=== PATIENT | male | born 1975 | race Caucasian/White ===

== ENCOUNTER → 2020-07-14 09:26 | Outpatient (BNVA) | payer SELFPAY | PROVIDERS: Family Provider Family Medicine; PCP Family Medicine; Referring Provider Family Medicine; Visit Provider Orthopaedic Surgery | DX: M25.461 Effusion, right knee (principal); M17.11 Unilateral primary osteoarthritis, right knee; M25.561 Pain in right knee | CPT/HCPCS: 73560; 73565 ==

== ENCOUNTER 2020-11-27 12:00 | Emergency (ER) | payer SELFPAY ==
[2020-11-27 12:17] VITALS: BP 133/69; PULSE 84; RESP 16; TEMP 36.8; O2SAT 100; BMI 33.9
[2020-11-27 12:23] VITALS: BP 116/75; PULSE 81; RESP 18; O2SAT 97
--- NOTE | 2020-11-27 12:26 | W.ED.BACK ---
HPI - Back Pain/Injury General: Chief Complaint: Back Pain/Injury Stated Complaint: Back Pain Time Seen by Provider: 11/27/20 12:21 History of Present Illness: HPI Narrative: Patient is a 45-year-old male comes to the ED with back pain. Patient says yesterday he was working at a [employer] and having board came down the line and hit patient in the lower back. He now has lower back pain that he rates it 10 out of 10. Pain stays in his lower back and does not radiate anywhere. Denies any bladder or bowel incontinence, pelvic anesthesia or weakness to extremities. Denies any pain rating down his legs. He says any movement with his core causes pain in his back. Associated symptoms: Deny abdominal pain, chills, dysuria, fatigue, fever(s), hematuria, nausea or vomiting Review of Systems Const: Denies: fever(s), chills or fatigue Eyes: Denies: change in vision or eye discomfort ENMT: Denies: throat pain, odynophagia, nasal discharge or nasal congestion Card: Denies: chest pain, palpitations, edema, swelling of feet/ankles, dyspnea on exertion or orthopnea Resp: Denies: dyspnea, productive cough or non-productive cough GI: Denies: abdominal pain, nausea, vomiting, diarrhea, constipation or hematochezia : Denies: flank pain, difficulty urinating, dysuria or hematuria Musc: Reports: back pain; Denies: neck pain or extremity swelling Skin/Breast: Denies: rash or new lesions Neuro: Denies: headache(s), numbness in extremities or weakness in extremities PFS ED PFSH: Social History Smoking and tobacco status: never smoked Alcohol intake: never Physical Exam Const: COMMON NORMALS: no acute distress, patient oriented x3 and alert GENERAL APPEARANCE: cooperative and comfortable HENMT: COMMON NORMALS: normocephalic HEAD & SCALP: normocephalic MOUTH: Normal oral and palatal mucosa present THROAT: posterior oropharynx normal and uvula midline Eye: COMMON NORMALS: Equal, round and reactive pupils present PUPIL: Yes Equal, round and reactive pupils present Neck/C-Spine: COMMON NORMALS: supple GENERAL: Yes normal visual inspection Resp: COMMON NORMALS: normal respiratory effort, No retractions, No use of accessory muscles and clear to auscultation bilaterally AUSCULTATION: clear to auscultation bilaterally Cardio: COMMON NORMALS: regular rate, regular rhythm, S1 normal heart sound present, S2 normal heart sound present, No gallops present (Cardio), No clicks present (Cardio), No murmurs present (Cardio) and Peripheral pulses 2+ throughout RATE: regular rate RHYTHM: regular rhythm HEART SOUNDS: S1 normal heart sound present and S2 normal heart sound present PERIPHERAL PULSES: Peripheral pulses 2+ throughout GI: COMMON NORMALS: Normal to inspection, nondistended, normoactive bowel sounds present, Soft to palpation, non-tender and no masses PALPATION: Yes Soft to palpation : COMMON NORMALS: Yes no CVA tenderness BLADDER/KIDNEY EXAM: Yes no CVA tenderness Back/Pelvis: COMMON NORMALS: no CVA tenderness LUMBAR SPINE/LOWER BACK: Yes pain with ROM, Yes lumbar spinal tenderness Lumbar spinal tenderness location: L3, L4 and L5 and Yes paraspinal muscle tenderness Lumbar paraspinal muscle tenderness: bilateral Bilateral lumbar paraspinal muscle tenderness: L3, L4 and L5 Extremity: COMMON NORMALS: normal to inspection Neuro: COMMON NORMALS: patient oriented x3 and moves all extremities SENSORIUM/ORIENTATION: Yes alert Skin: GENERAL SKIN EXAM: dry skin Course Vital Signs: Vital signs: Vital Signs Temperature 98.2 F 11/27/20 12:17 Pulse Rate 80 11/27/20 13:34 Respiratory Rate 16 11/27/20 13:34 Blood Pressure 126/81 11/27/20 13:34 Pulse Oximetry 97 11/27/20 13:34 MDM - Back Pain/Injury MDM Narrative: Medical decision making narrative: Patient is a 45-year-old male comes to the ED with acute back pain after workplace injury. Patient says that he works at a [employer] and a large board hit him in the lower back. Denies any cauda equina symptoms. CT lumbar spine showed no acute fractures, but did note some lumbar bulging disc. Patient diagnosed with acute lumbar back pain and bulging lumbar disc without myelopathy and discharged home with a prescription for hydrocodone and Flexeril. He was told to follow-up with his PCP in 7 to 10 days reevaluation. Return to ED precautions given. Patient understood agree with plan. Imaging Data^: Other CT: Attestation: I personally reviewed and interpreted this imaging study as follows: Radiologist's impression: [facility] [address] [place] [address] CT Scan Report Signed Patient: Riley Barillas Unit #: [id number] : [id number] Age/Sex: 45 / M ADM Date: 11/27/20 Loc: ER Room/Bed: Attending Dr: Ordering Provider/Ordering MD: Chris Rose Date of Service: 11/27/20 Procedure(s): CT lumbar spine wo con* [id number] Accession Number(s): [id number] Report Number: [id number] WS: [id number] CT LUMBAR SPINE TECHNIQUE: Noncontrast CT of the lumbar spine with coronal and sagittal reformatted images. CLINICAL INFORMATION: injury at saw [facility]-large board hit lumbar spine COMPARISON: None. DLP: 2321.[address] scans at [facility] use at least one of these dose optimization techniques: automated exposure control; mA and/or kV adjustment per patient size (includes targeted exams where dose is matched to clinical indication); or iterative reconstruction. FINDINGS: Mild lumbar curve convex right. Disc space narrowing worse L5-S1 with disc desiccation and endplate sclerotic changes. Annular bulging L3-L4 L4-L5 and L5-S1. No acute compression fractures. Normal spinous processes. No acute spinal fractures. L1-L2: Normal. L2-L3: Mild annular bulging with slight effacement of ventral thecal sac. Mild right and no significant left foraminal narrowing. Mild facet arthropathy. L3-L4: Mild annular bulging with a shallow central protrusion. Mild central canal stenosis. Narrowing of the subarticular recess. Mild left foraminal narrowing. L4-L5: Mild annular bulging with a shallow central protrusion. Mild central canal stenosis. Impingement traversing L5 nerve roots in the subarticular recess. Mild facet arthropathy. Mild left foraminal narrowing. L5-S1: Disc osteophyte complex with endplate ridging. Slight contact of the traversing S1 nerve roots. Spinal canal is patent. Mild bilateral foraminal narrowing. Visualized pelvic bony structures: Normal. Paravertebral soft tissues: Normal. CT/CT lumbar spine wo con* [id number] IMPRESSION: 1. Mild lumbar curve. No acute compression. Disc space narrowing worse L5-S1. 2. No acute fractures 3. Mild central canal stenosis L4-5 due to shallow central disc protrusion with impingement traversing L5 nerve roots bilaterally. 4. Annular bulging L3-4 with a tiny central protrusion. Mild central canal stenosis. Narrowing of the subarticular recess. 5. Disc osteophyte complex L5-S1 with slight contact of the S1 nerve roots with mild bilateral foraminal narrowing. 6. Mild left L3-4 and L4-5 foraminal narrowing Dictated By: Jose Mcnamara MD Signed By: Jose Mcnamara MD Signed Date/Time: 11/27/20 1358 DD/ 1337 Discharge Plan Discharge Patient Disposition: Home Clinical Impression: Bulge of lumbar disc without myelopathy Acute lumbar back pain Qualifiers: Back pain laterality: bilateral Sciatica presence: without sciatica Qualified Code(s): M54.5 - Low back pain Condition: Stable Prescriptions: New cyclobenzaprine 10 mg tablet 10 mg PO BID PRN (Reason: muscle spasm) Qty: 20 RF: 0 No Action acetaminophen [Tylenol] 325 mg tablet 325 mg PO QID PRNRF: 0 Discharge Orders: Discharge ED (Routine); Ordered 11/27/20 Ordered By: Chris Rose Discharge Diet: Regular Discharge Activity: Increase activity as tolerated Patient Instructions: Opioid Safety Activity Restrictions/Additional Instructions: Follow-up with medical provider as directed. Rest and limit lifting and activity for the next couple days to allow for healing. Apply cold pack on lower back or heat to help with symptoms. Stretch lower back muscles daily. Take medications as prescribed. Return to the ER or your medical provider if condition worsens. Please read and understand discharge instructions. Thank you for choosing [facility] for your healthcare needs today. Please realize this is an emergency room and that we are providing you with a medical screening exam and this may not be complete and all inclusive of all the testing and or work up that you may need to determine your ailment or severity of your illness. It is very important that you follow up as instructed or that you return to the Emergency Department should you have concerns or if your condition changes or worsens in any way. Coding Level of Care Code ED Distance Learning Administrator for Nicki Fwnubia Exam Comprehensive
--- NOTE | 2020-11-27 12:43 | CT_ITS ---
WS: [id number] CT LUMBAR SPINE TECHNIQUE: Noncontrast CT of the lumbar spine with coronal and sagittal reformatted images. CLINICAL INFORMATION: injury at [employer]-large board hit lumbar spine COMPARISON: None. DLP: 2321.[address] scans at [facility] use at least one of these dose optimization techniques: automated e xposure control; mA and/or kV adjustment per patient size (includes targeted exams where dose is matc hed to clinical indication); or iterative reconstruction. FINDINGS: Mild lumbar curve convex right. Disc space narrowing worse L5-S1 with disc desiccation and endplate s clerotic changes. Annular bulging L3-L4 L4-L5 and L5-S1. No acute compression fractures. Normal spino us processes. No acute spinal fractures. L1-L2: Normal. L2-L3: Mild annular bulging with slight effacement of ventral thecal sac. Mild right and no significa nt left foraminal narrowing. Mild facet arthropathy. L3-L4: Mild annular bulging with a shallow central protrusion. Mild central canal stenosis. Narrowing of the subarticular recess. Mild left foraminal narrowing. L4-L5: Mild annular bulging with a shallow central protrusion. Mild central canal stenosis. Impingeme nt traversing L5 nerve roots in the subarticular recess. Mild facet arthropathy. Mild left foraminal narrowing. L5-S1: Disc osteophyte complex with endplate ridging. Slight contact of the traversing S1 nerve roots . Spinal canal is patent. Mild bilateral foraminal narrowing. Visualized pelvic bony structures: Normal. Paravertebral soft tissues: Normal. CT/CT lumbar spine wo con* [id number] IMPRESSION: 1. Mild lumbar curve. No acute compression. Disc space narrowing worse L5-S1. 2. No acute fractures 3. Mild central canal stenosis L4-5 due to shallow central disc protrusion wit h impingement traversing L5 nerve roots bilaterally. 4. Annular bulging L3-4 with a tiny central protrusion. Mild central canal brittany nosis. Narrowing of the subarticular recess. 5. Disc osteophyte complex L5-S1 with slight contact of the S1 nerve roots wit h mild bilateral foraminal narrowing. 6. Mild left L3-4 and L4-5 foraminal narrowing
[2020-11-27] MEDS: HYDROcodone-acetaminophen 7.5-325 mg Tablet 1 TAB PO (13:14)
[2020-11-27 13:34] VITALS: BP 126/81; PULSE 80; RESP 16; O2SAT 97
== END 2020-11-27 14:31 | disposition home or self-care (01) ==
PROVIDERS: Emergency Provider Physician Assistant
DX: M51.26 Other intervertebral disc displacement, lumbar region (principal)
CPT/HCPCS: 72131; 99283